=== PATIENT | male | born 1980 | race Caucasian/White ===

== ENCOUNTER 2017-12-11 17:06 | Inpatient (IN) | payer MEDICAID, OTHER ==
[~2017-12-11] VITALS: Ht 170.2 cm; Wt 137.4 kg
[2017-12-11] MEDS ORDERED: IPRATROPIUM BROMIDE 0.5 MG/2.5 ML NEB SOLUTION NEB ONE ×2 (18:00→21:00)
[2017-12-11] MEDS ORDERED: ALBUTEROL SULFATE 2.5 MG/0.5 ML NEB SOLUTION NEB ONE (18:00)
[2017-12-11] MEDS ORDERED: ASPIRIN 81 MG CHEWABLE TABLET PO ONE (18:00)
[2017-12-11 18:14] LABS: APPEARANCE,URINE CLEAR (CLEAR); BILIRUBIN,URINE NEGATIVE (NEGATIVE); GLUCOSE, URINE (UA) NEGATIVE (NEGATIVE); KETONES,URINE NEGATIVE (NEGATIVE); LEUKOCYTE ESTERASE ,URINE NEGATIVE (NEGATIVE); NITRATE,URINE NEGATIVE (NEGATIVE); OCCULT BLOOD,URINE NEGATIVE (NEGATIVE); PH,URINE 6.5 (5.0-8.0); PROTEIN,URINE NEGATIVE (NEGATIVE); UROBILINOGEN,URINE 0.2 mg/dL (<=1.0)
[2017-12-11 18:44] LABS: BASOPHILS % (AUTO) 0.9 % (0.0-2.0); EOSINOPHILS % (AUTO) 1.7 % (1.0-6.0); HEMATOCRIT 48.7 % (41-53); HEMOGLOBIN 15.9 g/dL (13.5-17.5); LYMPHOCYTES # (AUTO) 2.1 K/uL (1.0-4.8); MEAN CORPUSCULAR HGB CONC 32.7 G/dL (31.0-37.0); MEAN CORPUSCULAR VOLUME 82 fL (80-100); MONOCYTES # (AUTO) 0.7 K/uL (0.1-1.0); MONOCYTES % (AUTO) 6.9 % (2.0-9.0); NEUTROPHILS % (AUTO) 69.5 % (40.0-70.0); PLATELET COUNT (AUTO) 243 K/uL (150-450); RED BLOOD CELL COUNT(AUTO) 5.91 MIL/uL (4.50-5.90); RED CELL DISTRIBUTION WIDTH 14.7 % (11.5-14.5)
[2017-12-11 18:54] LABS: ANION GAP 3 mmol/L (8-16); CALCIUM, TOTAL 8.9 mg/dL (8.8-10.5); CARBON DIOXIDE 36 mmol/L (22-29); CHLORIDE 100 mmol/L (98-107); GLOMERULAR FILTR. RATE CALC > 60 mL/min (>60); GLUCOSE,RANDOM 104 mg/dL (70-110); POTASSIUM 4.1 mmol/L (3.5-5.1); SODIUM SERUM 139 mmol/L (136-145); UREA NITROGEN, BLOOD 12 mg/dL (7-18)
[2017-12-11 19:05] LABS: B-TYPE NATRIURETIC PEPTIDE 16 pg/mL (0-100)
[2017-12-11 19:19] LABS: ALANINE AMINOTRANSFERASE 177 U/L (12-78); ALBUMIN 3.5 g/dL (3.4-5.0); ALKALINE PHOSPHATASE 85 U/L (46-116); ASPARTATE AMINOTRANSFERASE 67 U/L (15-37); BILIRUBIN,TOTAL 0.3 mg/dL (0.1-1.0); CKMB RELATIVE INDEX 2.2 % (0.0-4.0); CREATINE KINASE MB 7.1 ng/mL (0-5); CREATINE KINASE, TOTAL 327 U/L (39-308); TOTAL PROTEIN, SERUM 6.8 g/dL (6.4-8.2)
[2017-12-11] MEDS ORDERED: NITROGLYCERIN 2% (1 GM=INCH) PACKET TP ONE (19:45)
[2017-12-11] MEDS ORDERED: FUROSEMIDE 40 MG/4 ML VIAL IVP ONE (19:45)
[2017-12-11] MEDS ORDERED: ALBUTEROL SULFATE 5 MG/ML 20 ML NEB SOLN [BULK] NEB ONE (21:00)
[2017-12-11] MEDS ORDERED: DiphenhydrAMINE HCL 50 MG/ML VIAL IVP ONE (21:30)
[2017-12-11] MEDS ORDERED: MethylPREDNISolone SOD SUCC 125 MG/2 ML VIAL IVP ONE (21:30)
[2017-12-11 22:32] VITALS: BP 114/60
[2017-12-11] MEDS ORDERED: INFLUENZA VIRUS VACCINE QVS 2017-18 (3YR+)/PF 60 MCG/0.5 ML SYRINGE IM ONE (23:45)
[2017-12-11] MEDS ORDERED: PNEUMOCOCCAL VACCINE POLYVALENT 0.5 ML VIAL [PPSV23] IM ONE (23:45)
[2017-12-12] VITALS (7 sets, daily range): BP systolic 121–151; BP diastolic 51–87
[2017-12-12] MEDS ORDERED: IPRATROPIUM BROMIDE 0.5 MG/2.5 ML NEB SOLUTION NEB PRN (01:15)
[2017-12-12] MEDS ORDERED: MORPHINE SULFATE 2 MG/ML SYRINGE IVP PRN (01:15)
[2017-12-12] MEDS ORDERED: MAGNESIUM HYDROXIDE SUSPENSION 30 ML UDCUP PO PRN (01:15)
[2017-12-12] MEDS ORDERED: ACETAMINOPHEN 325 MG TABLET PO PRN (01:15)
[2017-12-12] MEDS ORDERED: 0.9% SODIUM CHLORIDE 10 ML SYRINGE IVP PRN (01:15)
[2017-12-12] MEDS ORDERED: ONDANSETRON HCL 4 MG/2 ML VIAL IVP PRN (01:15)
[2017-12-12] MEDS ORDERED: ALBUTEROL SULFATE 2.5 MG/0.5 ML NEB SOLUTION NEB PRN (01:15)
[2017-12-12] MEDS ORDERED: ZOLPIDEM TARTRATE 5 MG TABLET PO PRN (01:15)
[2017-12-12] MEDS: METOPROLOL TARTRATE 25 MG TABLET PO SCH ×3 (01:24→20:36)
[2017-12-12] MEDS: ALBUTEROL SULFATE 2.5 MG/0.5 ML NEB SOLUTION NEB SCH ×4 (02:29→19:15)
[2017-12-12] MEDS: IPRATROPIUM BROMIDE 0.5 MG/2.5 ML NEB SOLUTION NEB SCH ×4 (02:29→19:15)
[2017-12-12] MEDS: ATORVASTATIN CALCIUM 40 MG TABLET PO SCH (07:51)
[2017-12-12] MEDS: PANTOPRAZOLE SODIUM 40 MG DR TABLET PO SCH (07:51)
[2017-12-12] MEDS: HEPARIN SODIUM,PORCINE 5,000 UNITS/ML VIAL SQ SCH ×2 (07:51→15:26)
[2017-12-12] MEDS: ASPIRIN 81 MG CHEWABLE TABLET PO SCH (07:51)
[2017-12-12 12:06] LABS: ABG A-A DIFF O2 169.1 mmHg (10-20.0); ABG BASE EXCESS 11.8 mmol/L (-2.0-3.0); ABG CARBOXYHEMOGLOBIN 1.2 % (0.0-1.5); ABG HCO3 30.5 mmol/L (22.0-26.0); ABG METHEMOGLOBIN 0.4 % (0.0-1.5); ABG OXYGEN CONTENT 22.1 mL/dL (15.0-23.0); ABG OXYGEN SATURATION 95.5 % (95.0-98.0); ABG TOTAL HEMOGLOBIN 16.7 G/dL (12.0-18.0); PO2, ARTERIAL BG 87.4 mmHg (92.0-100.0); SOURCE, BLOOD GAS ARTERIAL
[2017-12-12 12:07] LABS: ABG PCO2 102 mmHg (35-45); ABG PH 7.206 (7.350-7.450); SITE, BLOOD GAS LFT RADIAL
[2017-12-12 12:08] LABS: O2 DEVICE,BLOOD GAS SIMPLE MASK (ROOM AIR)
[2017-12-12] MEDS: BUMETANIDE 0.25 MG/ML 4 ML VIAL IVP SCH ×2 (14:28→20:36)
[2017-12-12 14:31] LABS: ABG BASE EXCESS 12.1 mmol/L (-2.0-3.0); ABG CARBOXYHEMOGLOBIN 1.1 % (0.0-1.5); ABG HCO3 31.6 mmol/L (22.0-26.0); ABG METHEMOGLOBIN 0.2 % (0.0-1.5); ABG OXYGEN CONTENT 21.6 mL/dL (15.0-23.0); ABG OXYGEN SATURATION 95.5 % (95.0-98.0); ABG OXYHEMOGLOBIN 94.3 % (94.0-100.0); ABG TOTAL HEMOGLOBIN 16.3 G/dL (12.0-18.0); PO2, ARTERIAL BG 80.3 mmHg (92.0-100.0); SOURCE, BLOOD GAS ARTERIAL; TEMPERATURE, FAHRENHEIT, BG 98.6 FAHREN (96.0-98.6)
[2017-12-12 14:32] LABS: ABG PCO2 86 mmHg (35-45); ABG PH 7.272 (7.350-7.450); O2 DEVICE,BLOOD GAS BIPAP (ROOM AIR); SITE, BLOOD GAS LFT RADIAL; SPONTANEOUS VT, BG 600 ml
[2017-12-13] MEDS: IPRATROPIUM BROMIDE 0.5 MG/2.5 ML NEB SOLUTION NEB SCH ×4 (00:53→20:40)
[2017-12-13] MEDS: ALBUTEROL SULFATE 2.5 MG/0.5 ML NEB SOLUTION NEB SCH ×4 (00:53→20:40)
[2017-12-13 01:23] LABS: GLUCOMETER DEV NAME(LOC) 5N 2S; GLUCOSE,POINT OF CARE 202 MG/DL (70-110)
[2017-12-13] MEDS: HEPARIN SODIUM,PORCINE 5,000 UNITS/ML VIAL SQ SCH ×4 (01:29→16:48)
[2017-12-13 05:10] VITALS: BP 123/68
[2017-12-13 08:02] VITALS: BP 112/67
[2017-12-13] MEDS: ATORVASTATIN CALCIUM 40 MG TABLET PO SCH (08:41)
[2017-12-13] MEDS: METOPROLOL TARTRATE 25 MG TABLET PO SCH ×2 (08:41→20:54)
[2017-12-13] MEDS: BUMETANIDE 0.25 MG/ML 4 ML VIAL IVP SCH ×2 (08:41→20:54)
[2017-12-13] MEDS: PANTOPRAZOLE SODIUM 40 MG DR TABLET PO SCH (08:41)
[2017-12-13] MEDS: ASPIRIN 81 MG CHEWABLE TABLET PO SCH (08:41)
[2017-12-13 11:28] VITALS: BP 118/63
[2017-12-13] MEDS ORDERED: BENZOCAINE/MENTHOL LOZENGE [8 LOZENGES/PACKET] PO PRN (11:45)
[2017-12-13 15:20] VITALS: BP 116/65
[2017-12-13 19:49] VITALS: BP 143/82
[2017-12-13 23:40] VITALS: BP 130/75
[2017-12-14] MEDS: HEPARIN SODIUM,PORCINE 5,000 UNITS/ML VIAL SQ SCH ×4 (00:12→23:56)
[2017-12-14] MEDS: IPRATROPIUM BROMIDE 0.5 MG/2.5 ML NEB SOLUTION NEB SCH ×4 (01:34→20:10)
[2017-12-14] MEDS: ALBUTEROL SULFATE 2.5 MG/0.5 ML NEB SOLUTION NEB SCH ×4 (01:34→20:10)
[2017-12-14 05:44] VITALS: BP 142/79
[2017-12-14 07:01] LABS: BASOPHILS % (AUTO) 0.5 % (0.0-2.0); EOSINOPHILS % (AUTO) 1.2 % (1.0-6.0); HEMATOCRIT 50.7 % (41-53); HEMOGLOBIN 16.5 g/dL (13.5-17.5); LYMPHOCYTES # (AUTO) 1.8 K/uL (1.0-4.8); MEAN CORPUSCULAR HEMOGLOBIN 26.7 pg (26.0-34.0); MEAN CORPUSCULAR HGB CONC 32.5 G/dL (31.0-37.0); MEAN CORPUSCULAR VOLUME 82 fL (80-100); MONOCYTES # (AUTO) 0.8 K/uL (0.1-1.0); MONOCYTES % (AUTO) 8.1 % (2.0-9.0); NEUTROPHILS # (AUTO) 7.6 K/uL (1.8-7.7); NEUTROPHILS % (AUTO) 73.2 % (40.0-70.0); PLATELET COUNT (AUTO) 246 K/uL (150-450); RED BLOOD CELL COUNT(AUTO) 6.17 MIL/uL (4.50-5.90); RED CELL DISTRIBUTION WIDTH 14.9 % (11.5-14.5)
[2017-12-14 07:09] VITALS: BP 136/71
[2017-12-14 07:23] LABS: ALANINE AMINOTRANSFERASE 125 U/L (12-78); ALBUMIN 3.4 g/dL (3.4-5.0); ALKALINE PHOSPHATASE 82 U/L (46-116); ANION GAP 2 mmol/L (8-16); ASPARTATE AMINOTRANSFERASE 46 U/L (15-37); BILIRUBIN,TOTAL 0.6 mg/dL (0.1-1.0); CARBON DIOXIDE 40 mmol/L (22-29); CHLORIDE 98 mmol/L (98-107); CREATININE 0.73 mg/dL (0.60-1.30); GLOMERULAR FILTR. RATE CALC > 60 mL/min (>60); GLUCOSE,RANDOM 104 mg/dL (70-110); POTASSIUM 4.2 mmol/L (3.5-5.1); SODIUM SERUM 140 mmol/L (136-145); UREA NITROGEN, BLOOD 19 mg/dL (7-18)
[2017-12-14] MEDS: METOPROLOL TARTRATE 25 MG TABLET PO SCH ×2 (07:45→20:32)
[2017-12-14] MEDS: BUMETANIDE 0.25 MG/ML 4 ML VIAL IVP SCH ×2 (07:45→20:32)
[2017-12-14] MEDS: ASPIRIN 81 MG CHEWABLE TABLET PO SCH (07:45)
[2017-12-14] MEDS: PANTOPRAZOLE SODIUM 40 MG DR TABLET PO SCH (07:45)
[2017-12-14] MEDS: ATORVASTATIN CALCIUM 40 MG TABLET PO SCH (07:45)
[2017-12-14 11:03] VITALS: BP 117/60
[2017-12-14 12:02] LABS: ABG A-A DIFF O2 96.4 mmHg (10-20.0); ABG BASE EXCESS 11.4 mmol/L (-2.0-3.0); ABG HCO3 32.6 mmol/L (22.0-26.0); ABG METHEMOGLOBIN 0.2 % (0.0-1.5); ABG OXYGEN SATURATION 93.4 % (95.0-98.0); ABG OXYHEMOGLOBIN 92.3 % (94.0-100.0); ABG PCO2 55 mmHg (35-45); ABG PH 7.431 (7.350-7.450); ABG TOTAL HEMOGLOBIN 17.8 G/dL (12.0-18.0); PO2, ARTERIAL BG 67.5 mmHg (92.0-100.0); SOURCE, BLOOD GAS ARTERIAL; TEMPERATURE, FAHRENHEIT, BG 98.6 FAHREN (96.0-98.6)
[2017-12-14 12:03] LABS: O2 DEVICE,BLOOD GAS CANNULA (ROOM AIR); SITE, BLOOD GAS RT RADIAL
[2017-12-14 15:36] VITALS: BP 133/75
[2017-12-14 19:53] VITALS: BP 142/83
[2017-12-14 23:41] VITALS: BP 139/81
[2017-12-15] MEDS: IPRATROPIUM BROMIDE 0.5 MG/2.5 ML NEB SOLUTION NEB SCH ×4 (02:49→21:22)
[2017-12-15] MEDS: ALBUTEROL SULFATE 2.5 MG/0.5 ML NEB SOLUTION NEB SCH ×4 (02:49→21:22)
[2017-12-15 05:17] VITALS: BP 140/72
[2017-12-15] MEDS: HEPARIN SODIUM,PORCINE 5,000 UNITS/ML VIAL SQ SCH ×3 (09:24→23:03)
[2017-12-15] MEDS: BUMETANIDE 0.25 MG/ML 4 ML VIAL IVP SCH ×2 (09:24→19:49)
[2017-12-15] MEDS: PANTOPRAZOLE SODIUM 40 MG DR TABLET PO SCH (09:25)
[2017-12-15] MEDS: ASPIRIN 81 MG CHEWABLE TABLET PO SCH (09:25)
[2017-12-15] MEDS: ATORVASTATIN CALCIUM 40 MG TABLET PO SCH (09:25)
[2017-12-15] MEDS: METOPROLOL TARTRATE 25 MG TABLET PO SCH ×2 (09:25→19:49)
[2017-12-15 10:59] VITALS: BP 157/76
[2017-12-15 15:29] VITALS: BP 146/76
[2017-12-15 20:06] VITALS: BP 141/69
[2017-12-15 23:50] VITALS: BP 139/71
[2017-12-16] MEDS: ALBUTEROL SULFATE 2.5 MG/0.5 ML NEB SOLUTION NEB SCH ×3 (02:36→14:52)
[2017-12-16] MEDS: IPRATROPIUM BROMIDE 0.5 MG/2.5 ML NEB SOLUTION NEB SCH ×3 (02:36→14:52)
[2017-12-16 05:37] VITALS: BP 130/78
[2017-12-16 07:37] VITALS: BP 131/75
[2017-12-16] MEDS: PANTOPRAZOLE SODIUM 40 MG DR TABLET PO SCH (08:21)
[2017-12-16] MEDS: HEPARIN SODIUM,PORCINE 5,000 UNITS/ML VIAL SQ SCH (08:21)
[2017-12-16] MEDS: ATORVASTATIN CALCIUM 40 MG TABLET PO SCH (08:22)
[2017-12-16] MEDS: BUMETANIDE 0.25 MG/ML 4 ML VIAL IVP SCH (08:22)
[2017-12-16] MEDS: METOPROLOL TARTRATE 25 MG TABLET PO SCH (08:22)
[2017-12-16] MEDS: ASPIRIN 81 MG CHEWABLE TABLET PO SCH (08:22)
[2017-12-16] MEDS ORDERED: OXYGEN THERAPY IH SCH (08:30)
[2017-12-16 11:25] VITALS: BP 134/76
[2017-12-16] MEDS ORDERED: ASPI81 PO (12:53)
[2017-12-16] MEDS ORDERED: ATOR40TA28 PO (12:54)
[2017-12-16] MEDS ORDERED: METO25 PO (12:54)
[2017-12-16] MEDS ORDERED: ALBU8HFA IH (12:55)
[2017-12-16] MEDS ORDERED: BUME1TAB17 PO (13:23)
[2017-12-18 08:13] LABS: GLUCOMETER DEV NAME(LOC) 5S 2N; GLUCOSE,POINT OF CARE 106 MG/DL (70-110)
== END 2017-12-16 15:45 | disposition home or self-care (01) | DRG 133 ==
LOC: EMS 17:09 → 5N 21:00
PROVIDERS: ADMIT Internal Medicine; ATTEND Internal Medicine
PROC: 5A09357 Assistance with Respiratory Ventilation, Less than 24 Consecutive Hours, Continuous Positive Airway Pressure (ICD-10-PCS; principal; 2017-12-12)
PROC: 5A09357 Assistance with Respiratory Ventilation, Less than 24 Consecutive Hours, Continuous Positive Airway Pressure (ICD-10-PCS; 2017-12-13)
DX: J96.02 Acute respiratory failure with hypercapnia (principal); I50.31 Acute diastolic (congestive) heart failure; E88.81 Metabolic syndrome and other insulin resistance; E87.2 Acidosis; I20.8 Other forms of angina pectoris; E66.01 Morbid (severe) obesity due to excess calories; G47.33 Obstructive sleep apnea (adult) (pediatric); E78.5 Hyperlipidemia, unspecified; E78.00 Pure hypercholesterolemia, unspecified; J44.9 Chronic obstructive pulmonary disease, unspecified; Z88.8 Allergy status to other drugs, medicaments and biological substances; Z68.42 Body mass index [BMI] 45.0-49.9, adult
CPT/HCPCS: 71250; 82805; 82962; 84145; 87040; 93005; 93306; 94060; 94640; 94644; 94660; 96374; 99285; J1200; J1644; J1940; J2270; J2930; J3490

== ENCOUNTER 2018-09-24 07:08 | Inpatient (IN) | payer MEDICAID, SELFPAY ==
[~2018-09-24] VITALS: Ht 170.2 cm; Wt 138.4 kg
[~2018-09-24 07:08] MED LIST: ALBU8HFA IH; ASPI81 PO; ATOR40TA28 PO; BUME1TAB17 PO; METO25 PO
[2018-09-24] MEDS ORDERED: KCL10IV PO (07:28)
[2018-09-24] MEDS ORDERED: FURO20 PO (07:28)
[2018-09-24 07:39] LABS: GLUCOSE,POINT OF CARE 121 MG/DL (70-110)
[2018-09-24] MEDS ORDERED: ALBUTEROL SULFATE 5 MG/ML 20 ML NEB SOLN [BULK] NEB ONE (07:45)
[2018-09-24] MEDS ORDERED: IPRATROPIUM BROMIDE 0.5 MG/2.5 ML NEB SOLUTION NEB ONE (07:45)
[2018-09-24 08:22] LABS: BASOPHILS % (AUTO) 1.2 % (0.0-2.0); EOSINOPHILS % (AUTO) 1.3 % (1.0-6.0); HEMATOCRIT 47.9 % (41-53); HEMOGLOBIN 15.3 g/dL (13.5-17.5); LYMPHOCYTES % (AUTO) 14.9 % (22.0-44.0); MEAN CORPUSCULAR HEMOGLOBIN 26.8 pg (26.0-34.0); MEAN CORPUSCULAR HGB CONC 31.9 G/dL (31.0-37.0); MEAN CORPUSCULAR VOLUME 84 fL (80-100); MONOCYTES # (AUTO) 0.6 K/uL (0.1-1.0); MONOCYTES % (AUTO) 9.1 % (2.0-9.0); NEUTROPHILS # (AUTO) 4.7 K/uL (1.8-7.7); NEUTROPHILS % (AUTO) 73.5 % (40.0-70.0); PLATELET COUNT (AUTO) 176 K/uL (150-450); RED BLOOD CELL COUNT(AUTO) 5.69 MIL/uL (4.50-5.90); RED CELL DISTRIBUTION WIDTH 17.2 % (11.5-14.5)
[2018-09-24 08:36] LABS: ALANINE AMINOTRANSFERASE 82 U/L (12-78); ALBUMIN 3.2 g/dL (3.4-5.0); ALKALINE PHOSPHATASE 112 U/L (46-116); ANION GAP 0 mmol/L (8-16); ASPARTATE AMINOTRANSFERASE 77 U/L (15-37); BILIRUBIN,TOTAL 0.4 mg/dL (0.1-1.0); CALCIUM, TOTAL 7.8 mg/dL (8.8-10.5); CARBON DIOXIDE 40 mmol/L (22-29); CHLORIDE 105 mmol/L (98-107); CREATININE 0.66 mg/dL (0.60-1.30); GLOMERULAR FILTR. RATE CALC > 60 mL/min (>60); GLUCOSE,RANDOM 135 mg/dL (70-110); POTASSIUM 4.1 mmol/L (3.5-5.1); SODIUM SERUM 145 mmol/L (136-145); TOTAL PROTEIN, SERUM 6.2 g/dL (6.4-8.2); UREA NITROGEN, BLOOD 15 mg/dL (7-18)
[2018-09-24] MEDS ORDERED: BUMETANIDE 0.25 MG/ML 4 ML VIAL IVP ONE (08:45)
[2018-09-24 08:50] LABS: B-TYPE NATRIURETIC PEPTIDE 37 pg/mL (0-100)
[2018-09-24] MEDS ORDERED: ALBUTEROL SULFATE 2.5 MG/0.5 ML NEB SOLUTION NEB PRN (09:30)
[2018-09-24 11:21] VITALS: BP 122/53
[2018-09-24] MEDS ORDERED: PERFLUTREN PROTEIN-A MICROSPHERES 0.22 MG/ML 3 ML VIAL IVP ONE (11:45)
[2018-09-24] MEDS: ACETAMINOPHEN 325 MG TABLET PO PRN ×2 (12:47→20:47)
[2018-09-24 15:48] VITALS: BP 136/60
[2018-09-24] MEDS: IPRATROPIUM BROMIDE 0.5 MG/2.5 ML NEB SOLUTION NEB SCH ×3 (16:04→23:38)
[2018-09-24] MEDS: ALBUTEROL SULFATE 2.5 MG/0.5 ML NEB SOLUTION NEB SCH ×3 (16:04→23:38)
[2018-09-24 16:26] LABS: SOURCE, BLOOD GAS ARTERIAL; TEMPERATURE, FAHRENHEIT, BG 98.6 FAHREN (96.0-98.6)
[2018-09-24 16:28] LABS: ABG A-A DIFF O2 9.3 mmHg (10-20.0); ABG BASE EXCESS 7.8 mmol/L (-2.0-3.0); ABG CARBOXYHEMOGLOBIN 1.5 % (0.0-1.5); ABG METHEMOGLOBIN 0.4 % (0.0-1.5); ABG OXYGEN CONTENT 14.1 mL/dL (15.0-23.0); ABG OXYHEMOGLOBIN 61.3 % (94.0-100.0); ABG TOTAL HEMOGLOBIN 16.4 G/dL (12.0-18.0)
[2018-09-24] MEDS: BUMETANIDE 0.25 MG/ML 4 ML VIAL IVP SCH ×2 (16:33→23:48)
[2018-09-24] MEDS: HEPARIN SODIUM,PORCINE 5,000 UNITS/ML VIAL SQ SCH (16:33)
[2018-09-24 17:08] LABS: ABG A-A DIFF O2 17.4 mmHg (10-20.0); ABG BASE EXCESS 15.4 mmol/L (-2.0-3.0); ABG CARBOXYHEMOGLOBIN 1.6 % (0.0-1.5); ABG METHEMOGLOBIN 0.3 % (0.0-1.5); ABG OXYGEN CONTENT 21.1 mL/dL (15.0-23.0); ABG OXYHEMOGLOBIN 90.3 % (94.0-100.0); ABG TOTAL HEMOGLOBIN 16.6 G/dL (12.0-18.0); PO2, ARTERIAL BG 71.2 mmHg (92.0-100.0); SOURCE, BLOOD GAS ARTERIAL; TEMPERATURE, FAHRENHEIT, BG 98.6 FAHREN (96.0-98.6)
[2018-09-24 17:11] LABS: ABG OXYGEN SATURATION 62.5 % (95.0-98.0); ABG PCO2 87 mmHg (35-45); ABG PH 7.228 (7.350-7.450); PO2, ARTERIAL BG 36.5 mmHg (92.0-100.0)
[2018-09-24 17:12] LABS: ABG PH 7.271 (7.350-7.450)
[2018-09-24 17:12] LABS: SITE, BLOOD GAS RT RADIAL
[2018-09-24 17:13] LABS: ABG PCO2 94 mmHg (35-45); O2 DEVICE,BLOOD GAS CANNULA (ROOM AIR); SITE, BLOOD GAS RT RADIAL
[2018-09-24 19:22] VITALS: BP 115/73
[2018-09-24] MEDS: DOCUSATE SODIUM 100 MG CAPSULE PO SCH (20:47)
[2018-09-24 21:11] LABS: SOURCE, BLOOD GAS ARTERIAL; TEMPERATURE, FAHRENHEIT, BG 98.6 FAHREN (96.0-98.6)
[2018-09-24 21:14] LABS: ABG A-A DIFF O2 141.4 mmHg (10-20.0); ABG BASE EXCESS 15.3 mmol/L (-2.0-3.0); ABG CARBOXYHEMOGLOBIN 1.6 % (0.0-1.5); ABG HCO3 33.3 mmol/L (22.0-26.0); ABG METHEMOGLOBIN 0.3 % (0.0-1.5); ABG OXYGEN CONTENT 19.5 mL/dL (15.0-23.0); ABG OXYHEMOGLOBIN 85.3 % (94.0-100.0); ABG TOTAL HEMOGLOBIN 16.3 G/dL (12.0-18.0); PO2, ARTERIAL BG 60.4 mmHg (92.0-100.0)
[2018-09-24 21:19] LABS: ABG PCO2 105 mmHg (35-45)
[2018-09-24 21:20] LABS: O2 DEVICE,BLOOD GAS BIPAP (ROOM AIR); SITE, BLOOD GAS RT RADIAL
[2018-09-24 23:08] LABS: ABG A-A DIFF O2 84.2 mmHg (10-20.0); ABG BASE EXCESS 19.3 mmol/L (-2.0-3.0); ABG CARBOXYHEMOGLOBIN 2.1 % (0.0-1.5); ABG HCO3 36.8 mmol/L (22.0-26.0); ABG METHEMOGLOBIN 0.6 % (0.0-1.5); ABG OXYGEN CONTENT 21.9 mL/dL (15.0-23.0); ABG OXYGEN SATURATION 97.2 % (95.0-98.0); ABG OXYHEMOGLOBIN 94.6 % (94.0-100.0); ABG TOTAL HEMOGLOBIN 16.4 G/dL (12.0-18.0); PO2, ARTERIAL BG 107.2 mmHg (92.0-100.0); SOURCE, BLOOD GAS ARTERIAL; TEMPERATURE, FAHRENHEIT, BG 98.6 FAHREN (96.0-98.6)
[2018-09-24] MEDS ORDERED: RAPID SEQUENCE KIT [RSI] 1 EACH KIT ONE (23:10)
[2018-09-24] MEDS ORDERED: PROPOFOL 1000 MG/ISO-OSM 100 ML IV ONE (23:20)
[2018-09-24] MEDS ORDERED: PHENYLEPHRINE 200 MG/D5%-WATER 250 ML IV PRN (23:22)
[2018-09-24 23:36] LABS: ABG PH 7.232 (7.350-7.450)
[2018-09-24 23:37] LABS: ABG PCO2 114 mmHg (35-45); O2 DEVICE,BLOOD GAS BIPAP (ROOM AIR); SITE, BLOOD GAS RT RADIAL
[2018-09-24] MEDS: PROPOFOL 1000 MG/ISO-OSM 100 ML IV PRN (23:43)
[2018-09-24] MEDS ORDERED: ETOMIDATE 2 MG/ML 10 ML VIAL IVP ONE (23:45)
[2018-09-24] MEDS ORDERED: VECURONIUM BROMIDE 10 MG/VIAL IVP ONE (23:45)
[2018-09-25] VITALS (7 sets, daily range): BP systolic 71–126; BP diastolic 41–77
[2018-09-25] MEDS: HEPARIN SODIUM,PORCINE 5,000 UNITS/ML VIAL SQ SCH ×3 (00:03→17:03)
[2018-09-25] MEDS ORDERED: ATROPINE SULFATE 0.1 MG/ML 10 ML SYRINGE IVP ONE (00:25)
[2018-09-25] MEDS ORDERED: DOPamine HCL 400 MG/D5%-WATER 250 ML IV ONE (00:28)
[2018-09-25] MEDS: DOPamine HCL 400 MG/D5%-WATER 250 ML IV PRN ×2 (00:30→12:25)
[2018-09-25 00:35] LABS: ABG A-A DIFF O2 117.4 mmHg (10-20.0); ABG BASE EXCESS 14.1 mmol/L (-2.0-3.0); ABG CARBOXYHEMOGLOBIN 1.6 % (0.0-1.5); ABG HCO3 34.3 mmol/L (22.0-26.0); ABG METHEMOGLOBIN 0.2 % (0.0-1.5); ABG OXYGEN CONTENT 22.6 mL/dL (15.0-23.0); ABG OXYGEN SATURATION 97.7 % (95.0-98.0); ABG OXYHEMOGLOBIN 95.9 % (94.0-100.0); ABG PH 7.381 (7.350-7.450); ABG TOTAL HEMOGLOBIN 16.7 G/dL (12.0-18.0); PO2, ARTERIAL BG 90.6 mmHg (92.0-100.0); SOURCE, BLOOD GAS ARTERIAL; TEMPERATURE, FAHRENHEIT, BG 97.9 FAHREN (96.0-98.6)
[2018-09-25 00:38] LABS: ABG PCO2 68 mmHg (35-45); O2 DEVICE,BLOOD GAS VENTILATOR (ROOM AIR); PEEP,BG 5 cm H2O; SITE, BLOOD GAS RT RADIAL; VT, ABG 600 ml
[2018-09-25] MEDS: PROPOFOL 1000 MG/ISO-OSM 100 ML IV PRN ×8 (00:45→22:28)
[2018-09-25] MEDS: FentaNYL CITRATE PF 500 MCG in DEXTROSE 5%-WATER 90 ML IV PRN ×4 (01:51→19:50)
[2018-09-25] MEDS: IPRATROPIUM BROMIDE 0.5 MG/2.5 ML NEB SOLUTION NEB SCH ×6 (03:04→22:34)
[2018-09-25] MEDS: ALBUTEROL SULFATE 2.5 MG/0.5 ML NEB SOLUTION NEB SCH ×6 (03:04→22:34)
[2018-09-25 04:55] LABS: BASOPHILS % (AUTO) 0.9 % (0.0-2.0); EOSINOPHILS % (AUTO) 1.7 % (1.0-6.0); HEMATOCRIT 52.7 % (41-53); HEMOGLOBIN 16.8 g/dL (13.5-17.5); LYMPHOCYTES # (AUTO) 1.2 K/uL (1.0-4.8); LYMPHOCYTES % (AUTO) 14.6 % (22.0-44.0); MEAN CORPUSCULAR HEMOGLOBIN 26.7 pg (26.0-34.0); MEAN CORPUSCULAR VOLUME 84 fL (80-100); MONOCYTES # (AUTO) 0.5 K/uL (0.1-1.0); MONOCYTES % (AUTO) 5.9 % (2.0-9.0); NEUTROPHILS # (AUTO) 6.3 K/uL (1.8-7.7); NEUTROPHILS % (AUTO) 76.9 % (40.0-70.0); PLATELET COUNT (AUTO) 190 K/uL (150-450); RED BLOOD CELL COUNT(AUTO) 6.31 MIL/uL (4.50-5.90); RED CELL DISTRIBUTION WIDTH 16.9 % (11.5-14.5)
[2018-09-25 05:10] LABS: ANION GAP 2 mmol/L (8-16); CALCIUM, TOTAL 8.5 mg/dL (8.8-10.5); CHLORIDE 103 mmol/L (98-107); CREATININE 0.65 mg/dL (0.60-1.30); GLOMERULAR FILTR. RATE CALC > 60 mL/min (>60); GLUCOSE,RANDOM 138 mg/dL (70-110); PHOSPHORUS 1.8 mg/dL (2.5-4.9); POTASSIUM 3.2 mmol/L (3.5-5.1); SODIUM SERUM 147 mmol/L (136-145); UREA NITROGEN, BLOOD 12 mg/dL (7-18)
[2018-09-25 05:15] LABS: CARBON DIOXIDE 42 mmol/L (22-29)
[2018-09-25] MEDS ORDERED: DEXTROSE 50%-WATER 25 GM/50 ML SYRINGE IVP PRN (08:30)
[2018-09-25] MEDS: DOCUSATE SODIUM 100 MG CAPSULE PO SCH ×2 (08:43→20:24)
[2018-09-25] MEDS: PANTOPRAZOLE SODIUM 40 MG DR TABLET PO SCH (08:43)
[2018-09-25] MEDS: BUMETANIDE 0.25 MG/ML 4 ML VIAL IVP SCH ×2 (08:43→17:04)
[2018-09-25 08:56] LABS: ABG A-A DIFF O2 606.6 mmHg (10-20.0); ABG BASE EXCESS 15.2 mmol/L (-2.0-3.0); ABG CARBOXYHEMOGLOBIN 1.1 % (0.0-1.5); ABG HCO3 36.1 mmol/L (22.0-26.0); ABG METHEMOGLOBIN 0.3 % (0.0-1.5); ABG OXYGEN CONTENT 21.4 mL/dL (15.0-23.0); ABG OXYGEN SATURATION 88.4 % (95.0-98.0); ABG OXYHEMOGLOBIN 87.2 % (94.0-100.0); ABG PCO2 54 mmHg (35-45); ABG PH 7.477 (7.350-7.450); ABG TOTAL HEMOGLOBIN 17.5 G/dL (12.0-18.0); SOURCE, BLOOD GAS ARTERIAL; TEMPERATURE, FAHRENHEIT, BG 99.5 FAHREN (96.0-98.6)
[2018-09-25 08:57] LABS: PO2, ARTERIAL BG 51.5 mmHg (92.0-100.0)
[2018-09-25 08:58] LABS: O2 DEVICE,BLOOD GAS VENTILATOR (ROOM AIR); PEEP,BG 5 cm H2O; SITE, BLOOD GAS RT RADIAL; VT, ABG 600 ml
[2018-09-25] MEDS ORDERED: POTASSIUM PHOS,M-BASIC-D-BASIC 30 MMOL in DEXTROSE 5%-WATER 250 ML IV ONE (10:00)
[2018-09-25] MEDS ORDERED: IOVERSOL 350 MG/ML 150 ML VIAL ONE (10:36)
[2018-09-25] MEDS ORDERED: SODIUM CHLORIDE 0.9% 100 ML ONE (10:36)
[2018-09-25 11:42] LABS: ABG A-A DIFF O2 590.9 mmHg (10-20.0); ABG BASE EXCESS 17.9 mmol/L (-2.0-3.0); ABG CARBOXYHEMOGLOBIN 1.2 % (0.0-1.5); ABG HCO3 38.5 mmol/L (22.0-26.0); ABG METHEMOGLOBIN 0.2 % (0.0-1.5); ABG OXYGEN CONTENT 22.8 mL/dL (15.0-23.0); ABG OXYGEN SATURATION 93.2 % (95.0-98.0); ABG OXYHEMOGLOBIN 91.9 % (94.0-100.0); ABG PCO2 57 mmHg (35-45); ABG PH 7.482 (7.350-7.450); ABG TOTAL HEMOGLOBIN 17.7 G/dL (12.0-18.0); O2 DEVICE,BLOOD GAS VENTILATOR (ROOM AIR); PEEP,BG 10 cm H2O; PO2, ARTERIAL BG 64.3 mmHg (92.0-100.0); SITE, BLOOD GAS RT RADIAL; SOURCE, BLOOD GAS ARTERIAL; TEMPERATURE, FAHRENHEIT, BG 99.5 FAHREN (96.0-98.6); VT, ABG 600 ml
[2018-09-25] MEDS: INSULIN LISPRO 100 UNITS/ML SQ PRN (13:34)
[2018-09-25 13:43] LABS: GLUCOSE,POINT OF CARE 164 MG/DL (70-110)
[2018-09-25] MEDS ORDERED: ETOMIDATE 2 MG/ML 10 ML VIAL IV ONE (14:41)
[2018-09-25] MEDS ORDERED: VECURONIUM BROMIDE 10 MG/VIAL IV ONE (14:41)
[2018-09-25 15:43] LABS: LACTIC ACID 0.9 mmol/L (0.4-2.0)
[2018-09-25] MEDS: PIPERACILLIN/TAZO 3.375 GM/D5W 50 ML IV SCH ×2 (17:07→22:28)
[2018-09-25] MEDS ORDERED: SODIUM CHLORIDE 0.9% 250 ML IV ONE (17:29)
[2018-09-25 19:22] LABS: INFLUENZA TYPE A NEGATIVE FOR TYPE A (NEGATIVE); INFLUENZA TYPE B NEGATIVE FOR TYPE B (NEGATIVE)
[2018-09-25] MEDS ORDERED: AZITHROMYCIN 500 MG/NS 250 ML IV SCH (20:00)
[2018-09-25] MEDS: ACETAMINOPHEN 325 MG TABLET PO PRN (20:25)
[2018-09-25 20:38] LABS: GLUCOSE,POINT OF CARE 147 MG/DL (70-110)
[2018-09-26] VITALS: BP 112/68
[2018-09-26] MEDS: HEPARIN SODIUM,PORCINE 5,000 UNITS/ML VIAL SQ SCH ×3 (00:17→16:25)
[2018-09-26] MEDS: BUMETANIDE 0.25 MG/ML 4 ML VIAL IVP SCH ×4 (00:17→20:13)
[2018-09-26] MEDS: PROPOFOL 1000 MG/ISO-OSM 100 ML IV PRN ×8 (00:17→22:49)
[2018-09-26] MEDS: ACETAMINOPHEN 325 MG TABLET PO PRN ×2 (01:40→20:13)
[2018-09-26 01:48] LABS: GLUCOSE,POINT OF CARE 96 MG/DL (70-110)
[2018-09-26] MEDS ORDERED: SODIUM CHLORIDE 0.9% 250 ML IV ONE (03:28)
[2018-09-26] MEDS: ALBUTEROL SULFATE 2.5 MG/0.5 ML NEB SOLUTION NEB SCH ×6 (03:58→22:55)
[2018-09-26] MEDS: IPRATROPIUM BROMIDE 0.5 MG/2.5 ML NEB SOLUTION NEB SCH ×6 (03:58→22:55)
[2018-09-26 04:00] VITALS: BP 129/82
[2018-09-26] MEDS: PIPERACILLIN/TAZO 3.375 GM/D5W 50 ML IV SCH (04:40)
[2018-09-26 04:44] LABS: BASOPHILS % (AUTO) 0.9 % (0.0-2.0); EOSINOPHILS % (AUTO) 1.4 % (1.0-6.0); HEMATOCRIT 51.1 % (41-53); HEMOGLOBIN 16.6 g/dL (13.5-17.5); LYMPHOCYTES # (AUTO) 1.5 K/uL (1.0-4.8); LYMPHOCYTES % (AUTO) 18.2 % (22.0-44.0); MEAN CORPUSCULAR HEMOGLOBIN 26.8 pg (26.0-34.0); MEAN CORPUSCULAR HGB CONC 32.6 G/dL (31.0-37.0); MEAN CORPUSCULAR VOLUME 82 fL (80-100); MONOCYTES # (AUTO) 0.7 K/uL (0.1-1.0); MONOCYTES % (AUTO) 8.4 % (2.0-9.0); NEUTROPHILS # (AUTO) 5.8 K/uL (1.8-7.7); NEUTROPHILS % (AUTO) 71.1 % (40.0-70.0); PLATELET COUNT (AUTO) 206 K/uL (150-450); RED BLOOD CELL COUNT(AUTO) 6.21 MIL/uL (4.50-5.90); RED CELL DISTRIBUTION WIDTH 17.5 % (11.5-14.5)
[2018-09-26 05:06] LABS: ALANINE AMINOTRANSFERASE 50 U/L (12-78); ALBUMIN 3.2 g/dL (3.4-5.0); ALKALINE PHOSPHATASE 84 U/L (46-116); ANION GAP 3 mmol/L (8-16); ASPARTATE AMINOTRANSFERASE 19 U/L (15-37); BILIRUBIN,TOTAL 0.8 mg/dL (0.1-1.0); CALCIUM, TOTAL 8.3 mg/dL (8.8-10.5); CARBON DIOXIDE 39 mmol/L (22-29); CHLORIDE 102 mmol/L (98-107); CREATININE 0.97 mg/dL (0.60-1.30); GLOMERULAR FILTR. RATE CALC > 60 mL/min (>60); GLUCOSE,RANDOM 101 mg/dL (70-110); POTASSIUM 3.7 mmol/L (3.5-5.1); SODIUM SERUM 144 mmol/L (136-145); TOTAL PROTEIN, SERUM 6.6 g/dL (6.4-8.2); UREA NITROGEN, BLOOD 15 mg/dL (7-18)
[2018-09-26 05:19] LABS: PHOSPHORUS 5.3 mg/dL (2.5-4.9)
[2018-09-26 06:35] LABS: GLUCOSE,POINT OF CARE 106 MG/DL (70-110)
[2018-09-26 08:00] VITALS: BP 114/68
[2018-09-26] MEDS: PANTOPRAZOLE SODIUM 40 MG DR TABLET PO SCH (08:04)
[2018-09-26] MEDS: DOCUSATE SODIUM 100 MG CAPSULE PO SCH ×2 (08:04→20:13)
[2018-09-26] MEDS: LEVOFLOXACIN 750 MG/D5% WATER 150 ML IV SCH (10:10)
[2018-09-26 11:14] LABS: ABG A-A DIFF O2 149.7 mmHg (10-20.0); ABG BASE EXCESS 9.8 mmol/L (-2.0-3.0); ABG CARBOXYHEMOGLOBIN 1.4 % (0.0-1.5); ABG HCO3 32.1 mmol/L (22.0-26.0); ABG METHEMOGLOBIN 0.2 % (0.0-1.5); ABG OXYGEN CONTENT 22.3 mL/dL (15.0-23.0); ABG OXYGEN SATURATION 95.8 % (95.0-98.0); ABG OXYHEMOGLOBIN 94.3 % (94.0-100.0); ABG PCO2 49 mmHg (35-45); ABG PH 7.458 (7.350-7.450); ABG TOTAL HEMOGLOBIN 16.8 G/dL (12.0-18.0); O2 DEVICE,BLOOD GAS VENTILATOR (ROOM AIR); PEEP,BG 10 cm H2O; PO2, ARTERIAL BG 78.7 mmHg (92.0-100.0); SITE, BLOOD GAS RT RADIAL; SOURCE, BLOOD GAS ARTERIAL; TEMPERATURE, FAHRENHEIT, BG 100.1 FAHREN (96.0-98.6); VT, ABG 600 ml
[2018-09-26] MEDS: FentaNYL CITRATE PF 500 MCG in DEXTROSE 5%-WATER 90 ML IV PRN (11:23)
[2018-09-26 11:38] LABS: APPEARANCE,URINE CLEAR (CLEAR); BILIRUBIN,URINE NEGATIVE (NEGATIVE); GLUCOSE, URINE (UA) NEGATIVE (NEGATIVE); KETONES,URINE NEGATIVE (NEGATIVE); LEUKOCYTE ESTERASE ,URINE NEGATIVE (NEGATIVE); NITRATE,URINE NEGATIVE (NEGATIVE); OCCULT BLOOD,URINE NEGATIVE (NEGATIVE); PH,URINE 7.5 (5.0-8.0); PROTEIN,URINE NEGATIVE (NEGATIVE); UROBILINOGEN,URINE 0.2 mg/dL (<=1.0)
[2018-09-26 11:39] LABS: BACTERIA,URINE None Seen /HPF (None Seen); RBC,URINE None Seen /HPF (0-2); WBC,URINE None Seen /HPF (0-5)
[2018-09-26 12:00] VITALS: BP 115/74
[2018-09-26] MEDS ORDERED: VANCOMYCIN HCL 1.5 GM in DEXTROSE 5%-WATER 250 ML IV ONE (12:00)
[2018-09-26 15:45] LABS: ABG A-A DIFF O2 161.1 mmHg (10-20.0); ABG BASE EXCESS 14.7 mmol/L (-2.0-3.0); ABG CARBOXYHEMOGLOBIN 1.2 % (0.0-1.5); ABG HCO3 35.9 mmol/L (22.0-26.0); ABG METHEMOGLOBIN 0.2 % (0.0-1.5); ABG OXYGEN CONTENT 21.7 mL/dL (15.0-23.0); ABG OXYGEN SATURATION 91.6 % (95.0-98.0); ABG OXYHEMOGLOBIN 90.3 % (94.0-100.0); ABG PCO2 52 mmHg (35-45); ABG PH 7.481 (7.350-7.450); ABG TOTAL HEMOGLOBIN 17.1 G/dL (12.0-18.0); O2 DEVICE,BLOOD GAS VENTILATOR (ROOM AIR); PEEP,BG 5 cm H2O; PO2, ARTERIAL BG 63.3 mmHg (92.0-100.0); SITE, BLOOD GAS RT RADIAL; SOURCE, BLOOD GAS ARTERIAL; TEMPERATURE, FAHRENHEIT, BG 99.7 FAHREN (96.0-98.6); VT, ABG 600 ml
[2018-09-26 16:00] VITALS: BP 115/56
[2018-09-26 16:39] LABS: GLUCOSE,POINT OF CARE 113 MG/DL (70-110)
[2018-09-26 20:00] VITALS: BP 125/77
[2018-09-26] MEDS: MAGNESIUM HYDROXIDE SUSPENSION 30 ML UDCUP PO PRN (20:13)
[2018-09-26 20:49] LABS: GLUCOSE,POINT OF CARE 104 MG/DL (70-110)
[2018-09-26] MEDS: VANCOMYCIN HCL 1.5 GM in DEXTROSE 5%-WATER 250 ML IV SCH (22:48)
[2018-09-27] VITALS: BP 120/77
[2018-09-27] MEDS: HEPARIN SODIUM,PORCINE 5,000 UNITS/ML VIAL SQ SCH ×3 (00:42→16:51)
[2018-09-27] MEDS: ACETAMINOPHEN 325 MG TABLET PO PRN (00:43)
[2018-09-27 01:04] LABS: GLUCOSE,POINT OF CARE 137 MG/DL (70-110)
[2018-09-27] MEDS: PROPOFOL 1000 MG/ISO-OSM 100 ML IV PRN ×6 (01:28→20:16)
[2018-09-27] MEDS: ALBUTEROL SULFATE 2.5 MG/0.5 ML NEB SOLUTION NEB SCH ×6 (02:36→22:46)
[2018-09-27] MEDS: IPRATROPIUM BROMIDE 0.5 MG/2.5 ML NEB SOLUTION NEB SCH ×6 (02:37→22:46)
[2018-09-27 04:00] VITALS: BP 111/69
[2018-09-27] MEDS: FentaNYL CITRATE PF 500 MCG in DEXTROSE 5%-WATER 90 ML IV PRN ×2 (04:49→20:13)
[2018-09-27 04:59] LABS: ANION GAP 2 mmol/L (8-16); CALCIUM, TOTAL 8.3 mg/dL (8.8-10.5); CARBON DIOXIDE 37 mmol/L (22-29); CHLORIDE 101 mmol/L (98-107); CREATININE 0.88 mg/dL (0.60-1.30); GLOMERULAR FILTR. RATE CALC > 60 mL/min (>60); GLUCOSE,RANDOM 104 mg/dL (70-110); POTASSIUM 3.9 mmol/L (3.5-5.1); SODIUM SERUM 140 mmol/L (136-145); UREA NITROGEN, BLOOD 19 mg/dL (7-18)
[2018-09-27] MEDS: VANCOMYCIN HCL 1.5 GM in DEXTROSE 5%-WATER 250 ML IV SCH ×3 (05:50→21:54)
[2018-09-27 07:41] LABS: PHOSPHORUS 4.3 mg/dL (2.5-4.9)
[2018-09-27 08:00] VITALS: BP 116/77
[2018-09-27 08:00] LABS: BASOPHILS % (AUTO) 0.5 % (0.0-2.0); EOSINOPHILS % (AUTO) 2.7 % (1.0-6.0); HEMATOCRIT 52.3 % (41-53); LYMPHOCYTES # (AUTO) 1.5 K/uL (1.0-4.8); LYMPHOCYTES % (AUTO) 19.4 % (22.0-44.0); MEAN CORPUSCULAR HEMOGLOBIN 26.8 pg (26.0-34.0); MEAN CORPUSCULAR HGB CONC 32.4 G/dL (31.0-37.0); MEAN CORPUSCULAR VOLUME 83 fL (80-100); MONOCYTES # (AUTO) 0.7 K/uL (0.1-1.0); MONOCYTES % (AUTO) 9.3 % (2.0-9.0); NEUTROPHILS # (AUTO) 5.2 K/uL (1.8-7.7); NEUTROPHILS % (AUTO) 68.1 % (40.0-70.0); PLATELET COUNT (AUTO) 211 K/uL (150-450); RED BLOOD CELL COUNT(AUTO) 6.32 MIL/uL (4.50-5.90); RED CELL DISTRIBUTION WIDTH 17.1 % (11.5-14.5)
[2018-09-27 08:09] LABS: GLUCOSE,POINT OF CARE 112 MG/DL (70-110)
[2018-09-27] MEDS ORDERED: SODIUM CHLORIDE 0.9% 250 ML IV ONE (09:07)
[2018-09-27] MEDS: PANTOPRAZOLE SODIUM 40 MG DR TABLET PO SCH (09:12)
[2018-09-27] MEDS: BUMETANIDE 0.25 MG/ML 4 ML VIAL IVP SCH ×2 (09:12→21:00)
[2018-09-27] MEDS: DOCUSATE SODIUM 100 MG CAPSULE PO SCH ×2 (09:12→21:00)
[2018-09-27] MEDS: LEVOFLOXACIN 750 MG/D5% WATER 150 ML IV SCH (09:16)
[2018-09-27 10:51] LABS: ABG A-A DIFF O2 175.2 mmHg (10-20.0); ABG BASE EXCESS 4.3 mmol/L (-2.0-3.0); ABG CARBOXYHEMOGLOBIN 1.1 % (0.0-1.5); ABG HCO3 27.4 mmol/L (22.0-26.0); ABG METHEMOGLOBIN 0.3 % (0.0-1.5); ABG OXYGEN CONTENT 22.3 mL/dL (15.0-23.0); ABG OXYGEN SATURATION 88.6 % (95.0-98.0); ABG OXYHEMOGLOBIN 87.4 % (94.0-100.0); ABG PCO2 45 mmHg (35-45); ABG PH 7.426 (7.350-7.450); ABG TOTAL HEMOGLOBIN 18.2 G/dL (12.0-18.0); PO2, ARTERIAL BG 58.2 mmHg (92.0-100.0); SOURCE, BLOOD GAS ARTERIAL; TEMPERATURE, FAHRENHEIT, BG 99.3 FAHREN (96.0-98.6)
[2018-09-27 10:52] LABS: O2 DEVICE,BLOOD GAS VENTILATOR (ROOM AIR); PEEP,BG 5 cm H2O; PRESSURE SUPPORT, BG 8 cm H2O; SITE, BLOOD GAS RT RADIAL; SPONTANEOUS VT, BG 490 ml; VENT MODE, BG SPONTANEOUS (ROOM AIR)
[2018-09-27 12:00] VITALS: BP 126/74
[2018-09-27 16:00] VITALS: BP 104/69
[2018-09-27 20:00] VITALS: BP 118/81
[2018-09-27 23:39] LABS: GLUCOSE,POINT OF CARE 120 MG/DL (70-110)
[2018-09-28] MEDS: INSULIN LISPRO 100 UNITS/ML SQ PRN (00:32)
[2018-09-28] MEDS: PROPOFOL 1000 MG/ISO-OSM 100 ML IV PRN ×7 (02:06→20:32)
[2018-09-28] MEDS: IPRATROPIUM BROMIDE 0.5 MG/2.5 ML NEB SOLUTION NEB SCH ×5 (03:08→19:13)
[2018-09-28] MEDS: ALBUTEROL SULFATE 2.5 MG/0.5 ML NEB SOLUTION NEB SCH ×5 (03:08→19:13)
[2018-09-28 04:00] VITALS: BP 112/72
[2018-09-28 05:06] LABS: ANION GAP 4 mmol/L (8-16); CALCIUM, TOTAL 8.6 mg/dL (8.8-10.5); CARBON DIOXIDE 33 mmol/L (22-29); CHLORIDE 101 mmol/L (98-107); CREATININE 0.74 mg/dL (0.60-1.30); GLOMERULAR FILTR. RATE CALC > 60 mL/min (>60); GLUCOSE,RANDOM 122 mg/dL (70-110); POTASSIUM 3.6 mmol/L (3.5-5.1); SODIUM SERUM 138 mmol/L (136-145); UREA NITROGEN, BLOOD 23 mg/dL (7-18); VANCOMYCIN,RANDOM 15.2 mcg/mL (25.0-50.0)
[2018-09-28] MEDS: VANCOMYCIN HCL 1.5 GM in DEXTROSE 5%-WATER 250 ML IV SCH ×2 (05:33→14:18)
[2018-09-28 06:00] VITALS: BP 118/71
[2018-09-28 06:50] LABS: GLUCOSE,POINT OF CARE 119 MG/DL (70-110)
[2018-09-28 06:50] LABS: GLUCOSE,POINT OF CARE 146 MG/DL (70-110)
[2018-09-28] MEDS: HEPARIN SODIUM,PORCINE 5,000 UNITS/ML VIAL SQ SCH ×3 (07:58→15:47)
[2018-09-28] MEDS: BUMETANIDE 0.25 MG/ML 4 ML VIAL IVP SCH ×2 (07:58→20:31)
[2018-09-28] MEDS: DOCUSATE SODIUM 100 MG CAPSULE PO SCH ×2 (07:58→20:31)
[2018-09-28] MEDS: PANTOPRAZOLE SODIUM 40 MG DR TABLET PO SCH (07:59)
[2018-09-28 10:01] LABS: ABG A-A DIFF O2 136.8 mmHg (10-20.0); ABG BASE EXCESS 5.5 mmol/L (-2.0-3.0); ABG HCO3 28.1 mmol/L (22.0-26.0); ABG METHEMOGLOBIN 0.1 % (0.0-1.5); ABG OXYGEN CONTENT 22.1 mL/dL (15.0-23.0); ABG OXYGEN SATURATION 89.4 % (95.0-98.0); ABG OXYHEMOGLOBIN 87.5 % (94.0-100.0); ABG PCO2 47 mmHg (35-45); ABG PH 7.421 (7.350-7.450); O2 DEVICE,BLOOD GAS VENTILATOR (ROOM AIR); PO2, ARTERIAL BG 57.9 mmHg (92.0-100.0); SITE, BLOOD GAS RT RADIAL; SOURCE, BLOOD GAS ARTERIAL; TEMPERATURE, FAHRENHEIT, BG 98.6 FAHREN (96.0-98.6); VENT MODE, BG SPONTANEOUS (ROOM AIR)
[2018-09-28 10:02] LABS: CPAP, BG 0 cm H2O; PEEP,BG 0 cm H2O; PRESSURE SUPPORT, BG 8 cm H2O; SPONTANEOUS VT, BG 380 ml
[2018-09-28 10:30] VITALS: BP 122/76
[2018-09-28] MEDS: FentaNYL CITRATE PF 500 MCG in DEXTROSE 5%-WATER 90 ML IV PRN ×2 (10:42→19:05)
[2018-09-28 12:00] VITALS: BP 117/72
[2018-09-28] MEDS: LEVOFLOXACIN 750 MG/D5% WATER 150 ML IV SCH (12:11)
[2018-09-28 12:59] LABS: GLUCOSE,POINT OF CARE 124 MG/DL (70-110)
[2018-09-28] MEDS ORDERED: SODIUM CHLORIDE 0.9% 250 ML IV ONE ×2 (14:14→15:38)
[2018-09-28 16:00] VITALS: BP 120/75
[2018-09-28 18:35] LABS: GLUCOSE,POINT OF CARE 116 MG/DL (70-110)
[2018-09-28 20:00] VITALS: BP 116/66
[2018-09-29] VITALS: BP 103/64
[2018-09-29] MEDS: IPRATROPIUM BROMIDE 0.5 MG/2.5 ML NEB SOLUTION NEB SCH ×7 (00:12→22:53)
[2018-09-29] MEDS: ALBUTEROL SULFATE 2.5 MG/0.5 ML NEB SOLUTION NEB SCH ×7 (00:12→22:53)
[2018-09-29] MEDS: HEPARIN SODIUM,PORCINE 5,000 UNITS/ML VIAL SQ SCH ×3 (00:29→17:12)
[2018-09-29] MEDS: PROPOFOL 1000 MG/ISO-OSM 100 ML IV PRN ×4 (00:30→06:08)
[2018-09-29] MEDS: FentaNYL CITRATE PF 500 MCG in DEXTROSE 5%-WATER 90 ML IV PRN ×3 (00:31→11:14)
[2018-09-29] MEDS: INSULIN LISPRO 100 UNITS/ML SQ PRN (00:32)
[2018-09-29 00:59] LABS: GLUCOSE,POINT OF CARE 149 MG/DL (70-110)
[2018-09-29 04:00] VITALS: BP 111/60
[2018-09-29 05:22] LABS: ANION GAP 7 mmol/L (8-16); CALCIUM, TOTAL 8.6 mg/dL (8.8-10.5); CARBON DIOXIDE 33 mmol/L (22-29); CHLORIDE 99 mmol/L (98-107); CREATININE 0.69 mg/dL (0.60-1.30); GLOMERULAR FILTR. RATE CALC > 60 mL/min (>60); GLUCOSE,RANDOM 115 mg/dL (70-110); POTASSIUM 3.4 mmol/L (3.5-5.1); SODIUM SERUM 139 mmol/L (136-145); UREA NITROGEN, BLOOD 24 mg/dL (7-18)
[2018-09-29 07:49] LABS: GLUCOSE,POINT OF CARE 97 MG/DL (70-110)
[2018-09-29 08:00] VITALS: BP 110/65
[2018-09-29] MEDS: DOCUSATE SODIUM 100 MG CAPSULE PO SCH ×2 (09:19→20:20)
[2018-09-29] MEDS: BUMETANIDE 0.25 MG/ML 4 ML VIAL IVP SCH ×2 (09:19→20:20)
[2018-09-29] MEDS: LEVOFLOXACIN 750 MG/D5% WATER 150 ML IV SCH (09:19)
[2018-09-29] MEDS: PANTOPRAZOLE SODIUM 40 MG DR TABLET PO SCH (09:19)
[2018-09-29] MEDS ORDERED: SODIUM CHLORIDE 0.9% 250 ML IV ONE (09:28)
[2018-09-29] MEDS ORDERED: POTASSIUM CHLORIDE 20 MEQ ER TABLET PO PRN (11:30)
[2018-09-29 12:00] VITALS: BP 177/56
[2018-09-29 12:05] LABS: ORGANISM ID Not indicated.; S PNEUMO SOURCE Urine; STREP PNEUMONIAE AG URINE Negative (Negative); STREP.PNEUMO BODY FLUID CULT. Not Indicated
[2018-09-29 12:07] LABS: LEGIONELLA PNEUMO AG URINE Negative (Negative)
[2018-09-29 12:28] LABS: ABG A-A DIFF O2 132.3 mmHg (10-20.0); ABG BASE EXCESS 5.6 mmol/L (-2.0-3.0); ABG CARBOXYHEMOGLOBIN 1.1 % (0.0-1.5); ABG HCO3 27.8 mmol/L (22.0-26.0); ABG METHEMOGLOBIN 0.4 % (0.0-1.5); ABG OXYGEN CONTENT 21.8 mL/dL (15.0-23.0); ABG OXYGEN SATURATION 87.3 % (95.0-98.0); ABG PCO2 51 mmHg (35-45); ABG PH 7.395 (7.350-7.450); ABG TOTAL HEMOGLOBIN 18.1 G/dL (12.0-18.0); PO2, ARTERIAL BG 57.7 mmHg (92.0-100.0); SOURCE, BLOOD GAS ARTERIAL; TEMPERATURE, FAHRENHEIT, BG 99.1 FAHREN (96.0-98.6)
[2018-09-29 12:30] LABS: O2 DEVICE,BLOOD GAS VENTILATOR (ROOM AIR); PEEP,BG 5 cm H2O; SITE, BLOOD GAS LFT RADIAL; VENT MODE, BG Press. Support Vent. (ROOM AIR)
[2018-09-29 12:31] LABS: PRESSURE SUPPORT, BG 8 cm H2O
[2018-09-29 14:24] LABS: GLUCOSE,POINT OF CARE 150 MG/DL (70-110)
[2018-09-29] MEDS: ACETAMINOPHEN 325 MG TABLET PO PRN (15:43)
[2018-09-29 16:00] VITALS: BP 150/97
[2018-09-29 17:20] LABS: ABG A-A DIFF O2 135.7 mmHg (10-20.0); ABG BASE EXCESS 4.8 mmol/L (-2.0-3.0); ABG CARBOXYHEMOGLOBIN 0.9 % (0.0-1.5); ABG HCO3 27.8 mmol/L (22.0-26.0); ABG METHEMOGLOBIN 0.3 % (0.0-1.5); ABG OXYGEN CONTENT 23.3 mL/dL (15.0-23.0); ABG OXYGEN SATURATION 91.4 % (95.0-98.0); ABG OXYHEMOGLOBIN 90.3 % (94.0-100.0); ABG PCO2 46 mmHg (35-45); ABG PH 7.418 (7.350-7.450); ABG TOTAL HEMOGLOBIN 18.4 G/dL (12.0-18.0); PO2, ARTERIAL BG 66.4 mmHg (92.0-100.0); SOURCE, BLOOD GAS ARTERIAL; TEMPERATURE, FAHRENHEIT, BG 100.1 FAHREN (96.0-98.6)
[2018-09-29 17:21] LABS: O2 DEVICE,BLOOD GAS CANNULA (ROOM AIR); SITE, BLOOD GAS RT RADIAL
[2018-09-29] MEDS: POTASSIUM CHL 10 MEQ/WATER 50 ML IV PRN ×3 (17:38→20:21)
[2018-09-29 18:54] LABS: GLUCOSE,POINT OF CARE 129 MG/DL (70-110)
[2018-09-29 20:00] VITALS: BP 168/107
[2018-09-30] VITALS (7 sets, daily range): BP systolic 107–168; BP diastolic 66–107
[2018-09-30] MEDS: HEPARIN SODIUM,PORCINE 5,000 UNITS/ML VIAL SQ SCH ×4 (00:30→23:06)
[2018-09-30] MEDS: ACETAMINOPHEN 325 MG TABLET PO PRN ×3 (00:30→22:44)
[2018-09-30] MEDS: ALBUTEROL SULFATE 2.5 MG/0.5 ML NEB SOLUTION NEB SCH ×6 (03:17→22:37)
[2018-09-30] MEDS: IPRATROPIUM BROMIDE 0.5 MG/2.5 ML NEB SOLUTION NEB SCH ×6 (03:17→22:37)
[2018-09-30 05:17] LABS: BASOPHILS % (AUTO) 0.7 % (0.0-2.0); EOSINOPHILS % (AUTO) 1.7 % (1.0-6.0); HEMATOCRIT 53.3 % (41-53); HEMOGLOBIN 17.5 g/dL (13.5-17.5); LYMPHOCYTES # (AUTO) 0.9 K/uL (1.0-4.8); LYMPHOCYTES % (AUTO) 11.5 % (22.0-44.0); MEAN CORPUSCULAR HEMOGLOBIN 26.8 pg (26.0-34.0); MEAN CORPUSCULAR HGB CONC 32.8 G/dL (31.0-37.0); MEAN CORPUSCULAR VOLUME 82 fL (80-100); MONOCYTES # (AUTO) 0.7 K/uL (0.1-1.0); MONOCYTES % (AUTO) 9.5 % (2.0-9.0); NEUTROPHILS # (AUTO) 5.7 K/uL (1.8-7.7); NEUTROPHILS % (AUTO) 76.6 % (40.0-70.0); PLATELET COUNT (AUTO) 238 K/uL (150-450); RED BLOOD CELL COUNT(AUTO) 6.53 MIL/uL (4.50-5.90)
[2018-09-30 05:19] LABS: GLUCOSE,POINT OF CARE 108 MG/DL (70-110)
[2018-09-30 05:39] LABS: GLUCOSE,POINT OF CARE 108 MG/DL (70-110)
[2018-09-30 06:58] LABS: ANION GAP 8 mmol/L (8-16); CARBON DIOXIDE 31 mmol/L (22-29); CHLORIDE 105 mmol/L (98-107); CREATININE 0.79 mg/dL (0.60-1.30); GLOMERULAR FILTR. RATE CALC > 60 mL/min (>60); GLUCOSE,RANDOM 114 mg/dL (70-110); POTASSIUM 3.4 mmol/L (3.5-5.1); SODIUM SERUM 144 mmol/L (136-145); UREA NITROGEN, BLOOD 29 mg/dL (7-18)
[2018-09-30 09:01] LABS: ABG A-A DIFF O2 138.3 mmHg (10-20.0); ABG BASE EXCESS 5.3 mmol/L (-2.0-3.0); ABG CARBOXYHEMOGLOBIN 1.2 % (0.0-1.5); ABG HCO3 27.8 mmol/L (22.0-26.0); ABG METHEMOGLOBIN 0.4 % (0.0-1.5); ABG OXYGEN SATURATION 90.2 % (95.0-98.0); ABG OXYHEMOGLOBIN 88.8 % (94.0-100.0); ABG PCO2 49 mmHg (35-45); ABG PH 7.404 (7.350-7.450); ABG TOTAL HEMOGLOBIN 18.5 G/dL (12.0-18.0); PO2, ARTERIAL BG 61.3 mmHg (92.0-100.0); SOURCE, BLOOD GAS ARTERIAL; TEMPERATURE, FAHRENHEIT, BG 98.6 FAHREN (96.0-98.6)
[2018-09-30 09:02] LABS: O2 DEVICE,BLOOD GAS CANNULA (ROOM AIR); SITE, BLOOD GAS RT RADIAL
[2018-09-30] MEDS ORDERED: ONDANSETRON HCL 4 MG/2 ML VIAL IVP PRN (09:15)
[2018-09-30] MEDS: DOCUSATE SODIUM 100 MG CAPSULE PO SCH ×2 (09:21→20:50)
[2018-09-30] MEDS: PANTOPRAZOLE SODIUM 40 MG DR TABLET PO SCH (09:21)
[2018-09-30] MEDS: LEVOFLOXACIN 750 MG/D5% WATER 150 ML IV SCH (09:22)
[2018-09-30] MEDS: BUMETANIDE 0.25 MG/ML 4 ML VIAL IVP SCH ×2 (09:23→20:50)
[2018-09-30] MEDS ORDERED: PROCHLORPERAZINE MALEATE 10 MG TABLET PO PRN (13:15)
[2018-09-30 14:48] LABS: GLUCOSE,POINT OF CARE 133 MG/DL (70-110)
[2018-09-30 18:24] LABS: GLUCOMETER DEV NAME(LOC) 5S.2; GLUCOSE,POINT OF CARE 112 MG/DL (70-110)
[2018-09-30] MEDS: MAGNESIUM HYDROXIDE SUSPENSION 30 ML UDCUP PO PRN (20:57)
[2018-10-01] MEDS: HYDROCODONE/ACETAMINOPHEN 5-325 MG TABLET PO PRN ×3 (01:29→16:36)
[2018-10-01] MEDS: IPRATROPIUM BROMIDE 0.5 MG/2.5 ML NEB SOLUTION NEB SCH ×6 (02:37→23:01)
[2018-10-01] MEDS: ALBUTEROL SULFATE 2.5 MG/0.5 ML NEB SOLUTION NEB SCH ×6 (02:37→23:01)
[2018-10-01 05:56] VITALS: BP 143/89
[2018-10-01 07:39] LABS: GLUCOMETER DEV NAME(LOC) 5S.1; GLUCOSE,POINT OF CARE 104 MG/DL (70-110)
[2018-10-01 07:53] VITALS: BP 128/74
[2018-10-01] MEDS: DOCUSATE SODIUM 100 MG CAPSULE PO SCH ×2 (08:50→20:01)
[2018-10-01] MEDS: HEPARIN SODIUM,PORCINE 5,000 UNITS/ML VIAL SQ SCH ×3 (08:50→23:58)
[2018-10-01] MEDS: PANTOPRAZOLE SODIUM 40 MG DR TABLET PO SCH (08:50)
[2018-10-01] MEDS: BUMETANIDE 0.25 MG/ML 4 ML VIAL IVP SCH ×2 (08:50→20:02)
[2018-10-01] MEDS ORDERED: SODIUM CHLORIDE 0.9% 500 ML IV ONE (11:42)
[2018-10-01] MEDS: LEVOFLOXACIN 750 MG/D5% WATER 150 ML IV SCH (11:44)
[2018-10-01 11:49] LABS: GLUCOMETER DEV NAME(LOC) 5N.2; GLUCOSE,POINT OF CARE 129 MG/DL (70-110)
[2018-10-01 13:18] VITALS: BP 139/66
[2018-10-01] MEDS: GuaiFENesin/CODEINE [SUGAR FREE] 200-20MG/10 ML SYRUP UDCUP PO PRN (13:19)
[2018-10-01 15:44] VITALS: BP 117/70
[2018-10-01 17:34] LABS: GLUCOMETER DEV NAME(LOC) 5N.1; GLUCOSE,POINT OF CARE 123 MG/DL (70-110)
[2018-10-01 19:37] VITALS: BP 129/76
[2018-10-01] MEDS: ACETAMINOPHEN 325 MG TABLET PO PRN (20:01)
[2018-10-01 21:14] LABS: GLUCOMETER DEV NAME(LOC) 5N.2; GLUCOSE,POINT OF CARE 112 MG/DL (70-110)
[2018-10-01 21:14] LABS: GLUCOMETER DEV NAME(LOC) 5N.2; GLUCOSE,POINT OF CARE 101 MG/DL (70-110)
[2018-10-01 23:39] VITALS: BP 120/68
[2018-10-02] VITALS (7 sets, daily range): BP systolic 109–139; BP diastolic 61–72
[2018-10-02] MEDS: IPRATROPIUM BROMIDE 0.5 MG/2.5 ML NEB SOLUTION NEB SCH ×6 (03:06→22:41)
[2018-10-02] MEDS: ALBUTEROL SULFATE 2.5 MG/0.5 ML NEB SOLUTION NEB SCH ×6 (03:06→22:41)
[2018-10-02] MEDS: HYDROCODONE/ACETAMINOPHEN 5-325 MG TABLET PO PRN (03:47)
[2018-10-02] MEDS: BUMETANIDE 0.25 MG/ML 4 ML VIAL IVP SCH ×2 (09:14→21:05)
[2018-10-02] MEDS: HEPARIN SODIUM,PORCINE 5,000 UNITS/ML VIAL SQ SCH ×2 (09:14→16:28)
[2018-10-02] MEDS: PANTOPRAZOLE SODIUM 40 MG DR TABLET PO SCH (09:15)
[2018-10-02] MEDS: DOCUSATE SODIUM 100 MG CAPSULE PO SCH ×2 (09:15→21:04)
[2018-10-02] MEDS: GuaiFENesin/CODEINE [SUGAR FREE] 200-20MG/10 ML SYRUP UDCUP PO PRN (09:16)
[2018-10-02] MEDS: LEVOFLOXACIN 750 MG/D5% WATER 150 ML IV SCH (09:53)
[2018-10-02 17:20] LABS: GLUCOMETER DEV NAME(LOC) 5N.1; GLUCOSE,POINT OF CARE 113 MG/DL (70-110)
[2018-10-02 17:20] LABS: GLUCOMETER DEV NAME(LOC) 5N.1; GLUCOSE,POINT OF CARE 112 MG/DL (70-110)
[2018-10-03 00:09] LABS: GLUCOMETER DEV NAME(LOC) 6N.1; GLUCOSE,POINT OF CARE 125 MG/DL (70-110)
[2018-10-03] MEDS: HEPARIN SODIUM,PORCINE 5,000 UNITS/ML VIAL SQ SCH ×4 (00:09→23:54)
[2018-10-03] MEDS: IPRATROPIUM BROMIDE 0.5 MG/2.5 ML NEB SOLUTION NEB SCH ×6 (02:51→22:54)
[2018-10-03] MEDS: ALBUTEROL SULFATE 2.5 MG/0.5 ML NEB SOLUTION NEB SCH ×6 (02:51→22:55)
[2018-10-03 06:01] VITALS: BP 130/77
[2018-10-03 07:35] VITALS: BP 114/69
[2018-10-03] MEDS: GuaiFENesin/CODEINE [SUGAR FREE] 200-20MG/10 ML SYRUP UDCUP PO PRN (08:23)
[2018-10-03] MEDS: DOCUSATE SODIUM 100 MG CAPSULE PO SCH ×2 (08:23→20:20)
[2018-10-03] MEDS: BUMETANIDE 0.25 MG/ML 4 ML VIAL IVP SCH ×2 (08:23→20:07)
[2018-10-03] MEDS: PANTOPRAZOLE SODIUM 40 MG DR TABLET PO SCH (08:23)
[2018-10-03 08:39] LABS: GLUCOMETER DEV NAME(LOC) 5N.2; GLUCOSE,POINT OF CARE 102 MG/DL (70-110)
[2018-10-03 09:34] LABS: GLUCOMETER DEV NAME(LOC) 6N.1; GLUCOSE,POINT OF CARE 124 MG/DL (70-110)
[2018-10-03] MEDS ORDERED: SODIUM CHLORIDE 0.9% 250 ML IV ONE (10:11)
[2018-10-03] MEDS: LEVOFLOXACIN 750 MG/D5% WATER 150 ML IV SCH (11:04)
[2018-10-03 11:28] VITALS: BP 116/68
[2018-10-03 11:54] LABS: GLUCOMETER DEV NAME(LOC) 6N.2; GLUCOSE,POINT OF CARE 103 MG/DL (70-110)
[2018-10-03 15:55] VITALS: BP 113/65
[2018-10-03 17:54] LABS: GLUCOMETER DEV NAME(LOC) 6N.1; GLUCOSE,POINT OF CARE 122 MG/DL (70-110)
[2018-10-03 19:50] VITALS: BP 104/59
[2018-10-03 20:58] LABS: GLUCOMETER DEV NAME(LOC) 6N.2; GLUCOSE,POINT OF CARE 119 MG/DL (70-110)
[2018-10-03 23:31] VITALS: BP 104/53
[2018-10-04] MEDS: ALBUTEROL SULFATE 2.5 MG/0.5 ML NEB SOLUTION NEB SCH ×6 (02:56→22:53)
[2018-10-04] MEDS: IPRATROPIUM BROMIDE 0.5 MG/2.5 ML NEB SOLUTION NEB SCH ×6 (02:56→22:53)
[2018-10-04 04:51] VITALS: BP 123/71
[2018-10-04 06:12] LABS: GLUCOMETER DEV NAME(LOC) 6N.1; GLUCOSE,POINT OF CARE 108 MG/DL (70-110)
[2018-10-04 08:00] VITALS: BP 111/53
[2018-10-04] MEDS: DOCUSATE SODIUM 100 MG CAPSULE PO SCH ×2 (08:10→20:43)
[2018-10-04] MEDS: HEPARIN SODIUM,PORCINE 5,000 UNITS/ML VIAL SQ SCH ×3 (08:11→23:36)
[2018-10-04] MEDS: PANTOPRAZOLE SODIUM 40 MG DR TABLET PO SCH (08:11)
[2018-10-04] MEDS: BUMETANIDE 0.25 MG/ML 4 ML VIAL IVP SCH ×2 (08:11→20:43)
[2018-10-04] MEDS: LEVOFLOXACIN 750 MG/D5% WATER 150 ML IV SCH (10:10)
[2018-10-04 11:38] VITALS: BP 96/54
[2018-10-04 14:19] LABS: GLUCOMETER DEV NAME(LOC) 6N.1; GLUCOSE,POINT OF CARE 139 MG/DL (70-110)
[2018-10-04 15:41] VITALS: BP 117/74
[2018-10-04 17:25] LABS: GLUCOMETER DEV NAME(LOC) 6N.2; GLUCOSE,POINT OF CARE 108 MG/DL (70-110)
[2018-10-04 20:18] VITALS: BP 121/75
[2018-10-04] MEDS: ACETAMINOPHEN 325 MG TABLET PO PRN (20:43)
[2018-10-05 00:49] LABS: GLUCOMETER DEV NAME(LOC) 6N.1; GLUCOSE,POINT OF CARE 107 MG/DL (70-110)
[2018-10-05] MEDS: ALBUTEROL SULFATE 2.5 MG/0.5 ML NEB SOLUTION NEB SCH ×6 (03:23→22:16)
[2018-10-05] MEDS: IPRATROPIUM BROMIDE 0.5 MG/2.5 ML NEB SOLUTION NEB SCH ×6 (03:23→22:15)
[2018-10-05 05:40] VITALS: BP 122/62
[2018-10-05 07:14] LABS: GLUCOMETER DEV NAME(LOC) 6N.2; GLUCOSE,POINT OF CARE 108 MG/DL (70-110)
[2018-10-05 07:56] VITALS: BP 130/60
[2018-10-05] MEDS: DOCUSATE SODIUM 100 MG CAPSULE PO SCH ×2 (09:09→20:08)
[2018-10-05] MEDS: PANTOPRAZOLE SODIUM 40 MG DR TABLET PO SCH (09:09)
[2018-10-05] MEDS: HEPARIN SODIUM,PORCINE 5,000 UNITS/ML VIAL SQ SCH ×3 (09:10→23:18)
[2018-10-05] MEDS: BUMETANIDE 0.25 MG/ML 4 ML VIAL IVP SCH (09:10)
[2018-10-05] MEDS: LEVOFLOXACIN 750 MG/D5% WATER 150 ML IV SCH (09:18)
[2018-10-05 11:51] VITALS: BP 113/60
[2018-10-05] MEDS: INSULIN LISPRO 100 UNITS/ML SQ PRN ×2 (12:00→17:38)
[2018-10-05 16:24] VITALS: BP 103/66
[2018-10-05 19:23] LABS: GLUCOMETER DEV NAME(LOC) 6N.1; GLUCOSE,POINT OF CARE 109 MG/DL (70-110)
[2018-10-05 19:23] LABS: GLUCOMETER DEV NAME(LOC) 6N.1; GLUCOSE,POINT OF CARE 110 MG/DL (70-110)
[2018-10-05 19:55] VITALS: BP 130/74
[2018-10-05] MEDS: BUMETANIDE 1 MG TABLET PO SCH (20:08)
[2018-10-05 20:28] LABS: GLUCOMETER DEV NAME(LOC) 6N.2; GLUCOSE,POINT OF CARE 135 MG/DL (70-110)
[2018-10-06 00:05] VITALS: BP 119/74
[2018-10-06] MEDS: ALBUTEROL SULFATE 2.5 MG/0.5 ML NEB SOLUTION NEB SCH ×3 (03:45→12:49)
[2018-10-06] MEDS: IPRATROPIUM BROMIDE 0.5 MG/2.5 ML NEB SOLUTION NEB SCH ×3 (03:45→12:49)
[2018-10-06 04:36] VITALS: BP 105/57
[2018-10-06 05:59] LABS: GLUCOMETER DEV NAME(LOC) 6N.1; GLUCOSE,POINT OF CARE 108 MG/DL (70-110)
[2018-10-06 08:00] VITALS: BP 112/61
[2018-10-06] MEDS: BUMETANIDE 1 MG TABLET PO SCH (08:17)
[2018-10-06] MEDS: PANTOPRAZOLE SODIUM 40 MG DR TABLET PO SCH (08:17)
[2018-10-06] MEDS: DOCUSATE SODIUM 100 MG CAPSULE PO SCH (08:17)
[2018-10-06] MEDS: HEPARIN SODIUM,PORCINE 5,000 UNITS/ML VIAL SQ SCH (08:17)
[2018-10-06] MEDS: LEVOFLOXACIN 750 MG/D5% WATER 150 ML IV SCH (10:37)
[2018-10-06] MEDS: INSULIN LISPRO 100 UNITS/ML SQ PRN (12:08)
[2018-10-06] MEDS ORDERED: KDUR10 PO (12:20)
[2018-10-06 12:48] VITALS: BP 116/68
[2018-10-06 17:49] LABS: GLUCOMETER DEV NAME(LOC) 6N.1; GLUCOSE,POINT OF CARE 125 MG/DL (70-110)
== END 2018-10-06 15:10 | disposition home or self-care (01) | DRG 207 ==
LOC: EMS 07:09 → 5S 07:55 → ICU 22:20 → 5S 09-30 11:46 → 6N 10-02 16:45
PROVIDERS: ADMIT Internal Medicine; ATTEND Internal Medicine
PROC: 5A1955Z Respiratory Ventilation, Greater than 96 Consecutive Hours (ICD-10-PCS; principal; 2018-09-24)
PROC: 0BH18EZ Insertion of Endotracheal Airway into Trachea, Via Natural or Artificial Opening Endoscopic (ICD-10-PCS; 2018-09-24)
PROC: 05HY33Z Insertion of Infusion Device into Upper Vein, Percutaneous Approach (ICD-10-PCS; 2018-09-25)
PROC: B54MZZA Ultrasonography of Right Upper Extremity Veins, Guidance (ICD-10-PCS; 2018-09-25)
PROC: 5A09357 Assistance with Respiratory Ventilation, Less than 24 Consecutive Hours, Continuous Positive Airway Pressure (ICD-10-PCS; 2018-09-30)
PROC: 5A09357 Assistance with Respiratory Ventilation, Less than 24 Consecutive Hours, Continuous Positive Airway Pressure (ICD-10-PCS; 2018-10-01)
PROC: 5A09357 Assistance with Respiratory Ventilation, Less than 24 Consecutive Hours, Continuous Positive Airway Pressure (ICD-10-PCS; 2018-10-02)
PROC: 5A09357 Assistance with Respiratory Ventilation, Less than 24 Consecutive Hours, Continuous Positive Airway Pressure (ICD-10-PCS; 2018-10-03)
PROC: 5A09357 Assistance with Respiratory Ventilation, Less than 24 Consecutive Hours, Continuous Positive Airway Pressure (ICD-10-PCS; 2018-10-04)
PROC: 5A09357 Assistance with Respiratory Ventilation, Less than 24 Consecutive Hours, Continuous Positive Airway Pressure (ICD-10-PCS; 2018-10-05)
PROC: 5A09357 Assistance with Respiratory Ventilation, Less than 24 Consecutive Hours, Continuous Positive Airway Pressure (ICD-10-PCS; 2018-10-06)
DX: J96.01 Acute respiratory failure with hypoxia (principal); J18.9 Pneumonia, unspecified organism; E66.2 Morbid (severe) obesity with alveolar hypoventilation; I50.32 Chronic diastolic (congestive) heart failure; E87.2 Acidosis; J98.19 Other pulmonary collapse; Z68.42 Body mass index [BMI] 45.0-49.9, adult; E11.9 Type 2 diabetes mellitus without complications; E78.00 Pure hypercholesterolemia, unspecified; E78.5 Hyperlipidemia, unspecified; I11.0 Hypertensive heart disease with heart failure; Z91.14 Patient's other noncompliance with medication regimen; Z88.8 Allergy status to other drugs, medicaments and biological substances; Z79.899 Other long term (current) drug therapy
CPT/HCPCS: 36245; 71250; 71275; 76937; 82805; 83605; 83735; 84100; 84132; 84145; 87040; 87070; 87081; 87086; 87449; 87804; 87899; 92610; 93005; 93970; 94002; 94003; 94640; 94644; 94660; 94667; 96374; 96375; 97163; 97166; 97530; 97535; C8929; G0378; J0456; J0461; J1265; J1644; J1956; J2370; J2405; J2543; J2704; J3010; J3370; J3480; J3490; J7040; J7050; J7060

== ENCOUNTER 2024-08-17 18:08 | Emergency (ER) | payer MEDICAID, OTHER ==
[~2024-08-17] VITALS: Ht 170.2 cm; Wt 118.2 kg
[~2024-08-17 18:08] MED LIST changes: +ALBU18HF12 IH; -ALBU8HFA IH; +ASPI-1450 PO; -ASPI81 PO; -BUME1TAB17 PO; +BUME1TAB50 PO; -METO25 PO; +POTA-92 PO
[2024-08-17 18:36] VITALS: TEMP 98.6
[2024-08-17] MEDS: FLUORESCEIN SODIUM 1 MG STRIP OU ONE (20:04)
[2024-08-17] MEDS ORDERED: ACET-2080 PO (20:14)
[2024-08-17] MEDS ORDERED: SULF15DR26 OD (20:14)
[2024-08-17] MEDS ORDERED: GUAIFDM PO (20:14)
[2024-08-17] MEDS: ACETAMINOPHEN/CODEINE 300-30 MG TABLET PO ONE (20:28)
[2024-08-17] MEDS: GuaiFENesin/D-METHORPHAN [SUGAR-FREE] 200-20MG/10 ML SYRUP UDCUP PO ONE (20:28)
[2024-08-17 20:35] VITALS: BP 131/68; PULSE 74; RESP 18; O2SAT 98
== END 2024-08-17 20:56 | disposition home or self-care (01) ==
LOC: EMS 18:22
DX: S05.01XA Injury of conjunctiva and corneal abrasion without foreign body, right eye, initial encounter (principal); J06.9 Acute upper respiratory infection, unspecified; E11.9 Type 2 diabetes mellitus without complications; E78.00 Pure hypercholesterolemia, unspecified; Z88.8 Allergy status to other drugs, medicaments and biological substances; W19.XXXA Unspecified fall, initial encounter; Y93.89 Activity, other specified; Y92.89 Other specified places as the place of occurrence of the external cause; Y99.8 Other external cause status
CPT/HCPCS: 82962; 99283